=== PATIENT | female | born 1950 | race Caucasian/White ===

== ENCOUNTER 2019-11-12 10:22 | Inpatient (IN) | payer MEDICARE, OTHER ==
[~2019-11-12] VITALS: Ht 157.5 cm; Wt 78.1 kg
--- NOTE | ~2019-11-12 | OP ---
[facility] [address] [place] [address] OPERATIVE REPORT Name: MARÍA ELENA VOGT Joaquin Room: [address] Coleman#: [id number] Admission: 11/12/19 Attend Phys: Joaquin Rne Discharge: Date of : 48 Report #: [id number] THIS REPORT FOR: //name// cc: Cassandra Zarate MD Mcrae, Jennifer A, MD THIS REPORT FOR: //name// CC: Cassandra Marshall PREOPERATIVE DIAGNOSIS: Gangrene, fourth digit of the right foot. POSTOPERATIVE DIAGNOSIS: Gangrene, fourth digit of the right foot. PROCEDURE: Amputation fourth digit of the right foot. DESCRIPTION OF PROCEDURE: The patient was placed on the operating table in the supine position. After administration of IV sedation, local infiltration of 1% plain Xylocaine and 0.5% plain Marcaine, in equal amounts was infiltrated into the fourth metatarsophalangeal joint, 8 mL. The usual prep and drape was rendered at this time. Pneumatic tourniquet was applied supplementary to the right ankle at 250 mmHg for 27 minutes. The following procedure was now performed. A longitudinal incision was made over the distal third of the fourth metatarsal of the right foot to the joint line, two semielliptical incisions were then made from dorsal proximal to plantar distal to encompass the fourth digit and meeting plantarly. The skin incision at this time was deepened. The subcutaneous tissue was incised, bleeders were clamped and coagulated. The fourth metatarsophalangeal joint capsule was identified. The capsular structure was incised transversely. The medial and lateral collateral ligaments were incised and the tendinous structures, extensor digitorum longus and brevis dorsally and flexor digitorum longus and brevis plantarly were now incised and allowed to retract in the incision. The fourth digit was then disarticulated from the right foot. Both aerobic and anaerobic cultures were now performed to the surgical site. It was noted at this time that there was considerable fluid, which was not purulent, but due to the patient's renal failure, she seemed to be edematous okay so that the fluid was just part of the overload that she has at this time. Therefore, it was felt that complete closure of the wound would not be efficacious and that the tissues on the medial and lateral margins of the skin both proximal, intermediate and distal were friable, there were several 4-0 chromic gut subcutaneous tissues applied distally and proximally, but due to the condition of the tissues, it felt that further subcutaneous closure was not appropriate. The skin was then closed with 4-0 nylon simple suture that was entered digital was left open and packed with iodoform gauze. Next, Xeroform was applied to the surgical site as well as a dry sterile dressing. The tourniquet was released and good capillary filling time was noted. The patient [facility] [address] [place] [address] OPERATIVE REPORT Name: MARÍA ELENA MIRANDA Room: [address] Zacarias Cee#: [id number] Admission: 11/12/19 Attend Phys: Joaquin Ren Discharge: Date of : 48 Report #: [id number] tolerated the surgical procedure well and left the operating room in satisfactory condition. By: 1307 [id number] Her DPM /seun
[2019-11-12 10:40] VITALS: BP 144/63
[2019-11-12] MEDS ORDERED: TRAMADOL 50 MG50 MG PO (10:49)
[2019-11-12] MEDS ORDERED: NORVASC5 M1 PO (10:52)
[2019-11-12] MEDS ORDERED: CARVEDILOL6.25 M1 PO (10:53)
[2019-11-12] MEDS ORDERED: FUROSEMIDE 40 M40 M1 PO (10:53)
[2019-11-12] MEDS ORDERED: LIPITOR40 MG PO (10:55)
[2019-11-12] MEDS ORDERED: DOXYCYCLINE 10100 M2 PO (10:56)
[2019-11-12] MEDS ORDERED: SODIUM BICARBONATE PO (10:59)
[2019-11-12 11:00] LABS: ABSOLUTE BASOPHILS 0.1 thou/uL (0.0-0.2); ABSOLUTE EOSINOPHILS 0.2 thou/uL (0.0-0.7); ABSOLUTE MONOCYTES 0.5 thou/uL (0.0-1.2); ABSOLUTE NEUTROPHILS 4.7 thou/uL (1.6-8.1); BASOPHILS 1.3 %; EOSINOPHILS 2.6 %; HEMATOCRIT 25.9 % (37.0-47.0); HEMOGLOBIN 8.8 gm/dL (12.0-15.0); LYMPHOCYTES 15.1 %; MCH 29.7 pg (26.0-34.0); MCHC 33.8 g/dL (28.0-37.0); MCV 87.9 fL (80.0-100.0); MONOCYTES 7.6 %; MPV 8.2 fl. (7.2-11.1); NUCLEATED RBCS 0 /100WBC; PLATELET COUNT* 217 thou/uL (150-400); POLYS 73.4 %; RBC 2.95 mil/uL (4.20-5.00); RDW-CV 14.9 % (10.5-14.5); WBC 6.4 thou/uL (4.0-11.0)
[2019-11-12] MEDS ORDERED: BACLOFEN 10MG T10 MG PO (11:00)
[2019-11-12] MEDS ORDERED: LANTUS SUBQ (11:00)
[2019-11-12] MEDS ORDERED: NEURONTIN100 MG PO (11:01)
[2019-11-12 11:09] LABS: APTT 26.6 Seconds (25.0-31.3); PROTIME 10.7 Seconds (9.20-11.50)
[2019-11-12 12:00] LABS: ESR (SEDRATE) 94 mm/hr (0-30)
[2019-11-12 12:01] LABS: ALBUMIN 2.8 g/dL (3.4-5.0); CALCIUM 8.3 mg/dL (8.5-10.1); CREATININE 4.5 mg/dL (0.6-1.3); POTASSIUM 5.3 mmol/L (3.5-5.1); TOTAL BILIRUBIN 0.2 mg/dL (<0.1-1.0)
--- NOTE | 2019-11-12 12:20 | EKG ---
[place] [address] ELECTROCARDIOGRAM REPORT Name: MARÍA ELENA VOGT Joaquin Room: [address]R.#: [id number] Admission: 11/12/19 Attend Phys: Kendall Marshall Discharge: Date of : 48 Date of Service: 11/12/19 1054 Report #: [id number] THIS REPORT FOR: //name// [facility] Test Date: 2019-11-12 Test Time: 10:54:26 Pat Name: MARÍA ELENA MIRANDA Department: Room: [place] [address] Gender: F Head Cook: FREDERIC : 1950 Requested By: Marcus Her Order Number: [id number] Igor MD: Garret Evans Measurements Intervals [place] Rate: 71 P: 27 DC: 210 QRS: 3 QRSD: 96 T: 46 QT: 393 QTc: 428 Interpretive Statements Sinus rhythm Low voltage, precordial leads No previous ECG available for comparison Electronically Signed On 11-12-2019 12:20:02 CDT by Garret Evans [email or web address] <ELECTRONICALLY SIGNED> By: Garret Evans MD, [facility] 11/12/19 1220 1054 1054 Garret Evans MD, [facility] /EPI
[2019-11-12 15:00] VITALS: BP 114/46
--- NOTE | 2019-11-12 17:00 | NUR ---
SPOKE WITH DAUGHTER,CHASE, AT DESK. SHE SAID TOLD HER PT.WOULD STAY LONGER IN HOSPITAL THAT ONE DAY DUE TO KIDNEY FAILURE, PENDING CX,ETC. SHE IS CURRENT WITH [facility].[phone]. GAVE CHASE A PRIVATE DUTY LIST PER HER REQUEST. SHE SAID SHE NEEDED TO HAVE SOMEONE HELP HER MOM,[facility]. SHE UNDERSTOOD IT IS PRIVATE PAY.
--- NOTE | 2019-11-12 17:30 | NUR ---
PATIENT ARRIVED TO THE FLOOR ROOM 108 APPROX. 1500 TODAY FROM PACU. SHE HAD THE 4TH TOE ON THE RIGHT FOOT AMPUTATED DUE TO GRANGRENE. SHE WAS VERY SLEEPY WHEN SHE CAME TO THE FLOOR AND IS STILL VERY SLEEPY. I CAN WAKE HER EASILY AND THEN SHE FALLS RIGHT BACK TO SLEEP. SHE IS ON OXYGEN AT 3 LITERS PER NC. SHE DOES HAVE SNORING RESPIRATIONS BUT HER LUNGS ARE CLEAR. SHE HAS SWELLING IN BILATERAL LOWER EXT. DAUGHTER STATES THAT IS HER NORMAL. SHE IS DIABETIC AND HER BLOOD SUGAR THIS PM WAS 78. HER TRAY IS IN THE ROOM BUT SHE IS TO TIRED TO EAT AT THIS TIME. CALL LIGHT IN EASY REACH. DENIES PAIN AT THIS TIME. DAUGHTER HAS BEEN HER WITH HER SINCE SHE RETURNED FROM PACU. I PLACED A POST OP SHE IN THE ROOM AND THE SUPPLIES FOR THE DRESSING CHANGE THAT THE REQUESTED. BACK JOINER JAYLON STATED THAT SHE WOULD HAVE THE RENEWABLE ENERGY PROJECT MANAGER GET THE REST OF THE SUPPLIES THAT I NEED. NO DISTRESS NOTED. SHE DOES HAVE A WOUND ON THE OUTER ASPECT OF THE LEFT FOOT. I DID TAKE A PHOTO AND PUT IT ON THE CHART. HER DAUGHTER STATES THAT HER SHOE RUBBED IT.
[2019-11-12 20:00] VITALS: BP 151/55
[2019-11-13] VITALS: BP 147/54
[2019-11-13 02:06] LABS: GLYCOHEMOGLOBIN (HGB A1C) 6.6 % (4.8-5.6)
[2019-11-13 04:00] VITALS: BP 150/72
[2019-11-13 06:03] LABS: ABSOLUTE EOSINOPHILS 0.2 thou/uL (0.0-0.7); ABSOLUTE LYMPHOCYTES 0.6 thou/uL (0.8-5.3); ABSOLUTE MONOCYTES 0.3 thou/uL (0.0-1.2); ABSOLUTE NEUTROPHILS 3.5 thou/uL (1.6-8.1); BASOPHILS 1.1 %; EOSINOPHILS 3.9 %; HEMATOCRIT 25.4 % (37.0-47.0); HEMOGLOBIN 8.6 gm/dL (12.0-15.0); MCH 29.8 pg (26.0-34.0); MCHC 33.8 g/dL (28.0-37.0); MCV 88.4 fL (80.0-100.0); MONOCYTES 5.8 %; MPV 8.1 fl. (7.2-11.1); NUCLEATED RBCS 0 /100WBC; PLATELET COUNT* 206 thou/uL (150-400); POLYS 75.2 %; RBC 2.87 mil/uL (4.20-5.00); RDW-CV 14.7 % (10.5-14.5); WBC 4.6 thou/uL (4.0-11.0)
[2019-11-13 06:12] LABS: CALCIUM 8.3 mg/dL (8.5-10.1); CREATININE 4.6 mg/dL (0.6-1.3); POTASSIUM 5.6 mmol/L (3.5-5.1)
--- NOTE | 2019-11-13 06:40 | NUR ---
PT A&O X 4, DROWSY LAST NIGHT. PT DENIED PAIN ALL NIGHT. UP TO BSC TO VOID 3 TIMES BUT SMALL AMOUNT. AT O450 1053ML ON BLADDER SCAN, FISHER CATH INSERTED. PT DENIED PAIN ALL NIGHT. BUT IN THE MORNING, PT RATED PAIN 8/10 HYDROCODONE GIVEN, TRAMADOL GIVEN ALSO. PAIN PARTIALLY RESOLVED BUT SHE IS STILL IN PAIN. WILL CONTINUE TO MONITOR.
[2019-11-13 07:40] VITALS: BP 128/40
--- NOTE | 2019-11-13 16:30 | NUR ---
PATINET RESTING IN BED. AOX2 BUT CONFUSED. SHE CAN CARRY ON A CONVERSATIONO BUT WANDERS REGULARLY. VSS AND PATIENT IN NO APPARNET SIGNS OF DISTRESS A T THIS TIME. SURGERY CHANGED THE DRESSING ON HER RIGHT FOOT WITH INSTRUCTIONS TO NOT CHANGE DRESSING UNTIL HE REVISITS ON SATURDAY. HOURLY ROUNDING COMPLETD FOR PATIENT SAFETY.
[2019-11-13 17:14] VITALS: BP 126/78
[2019-11-13 20:00] VITALS: BP 167/74
[2019-11-14 00:07] VITALS: BP 134/50
[2019-11-14 05:06] LABS: ALBUMIN 2.3 g/dL (3.4-5.0); CALCIUM 8.4 mg/dL (8.5-10.1); CREATININE 4.5 mg/dL (0.6-1.3); POTASSIUM 5.3 mmol/L (3.5-5.1); TOTAL BILIRUBIN 0.2 mg/dL (<0.1-1.0); TOTAL PROTEIN 6.1 g/dL (6.4-8.2)
[2019-11-14 05:18] VITALS: BP 138/54
--- NOTE | 2019-11-14 08:19 | CON ---
[address] [address] CONSULTATION Name: MARÍA ELENA MIRANDA Room: [address] IN M.R.#: [id number] Admission: 11/13/19 Attend Phys: Joaquin Ren Discharge: Date of : 48 Report #: [id number] THIS REPORT FOR: //name// cc: Cassandra Zarate MD Mcrae, Jennifer A, MD ~ THIS REPORT FOR: //name// CC: Cassandra Marshall DATE OF SERVICE: 11/13/2019 REQUESTING PHYSICIAN: Dr. Ríos. REASON FOR CONSULTATION: Chronic kidney disease stage 5. Consultation done by me today, on 11/13/2019. HISTORY OF PRESENT ILLNESS: The patient is a 69-year-old female who has chronic kidney disease stage 5, follows with ski binding fitter and repairer at . I have personally reviewed the notes from ski binding fitter and repairer and her lab values, most recent lab value prior to admission were on 09/08/2019, her creatinine was 3.85 with GFR of 12. So, she was admitted for diabetic foot ulcer and underwent right foot fourth toe amputation. Her creatinine was elevated at 4.3, potassium was 5.6 and I was consulted. PAST MEDICAL HISTORY: 1. Chronic kidney disease stage 5 due to diabetic nephropathy. 2. Diabetes mellitus type 2. 3. Obesity. 4. Hypertension. 5. Peripheral artery disease. FAMILY HISTORY: Positive for diabetes. SOCIAL HISTORY: No tobacco, no alcohol abuse. MEDICATIONS: Reviewed. From my standpoint, she is on Furosemide 40 mg a day and Coreg 6.25 mg twice a day. She is also on insulin. REVIEW OF SYSTEMS: No fever, no chills, no nausea, no vomiting, no diarrhea, no constipation. She does have pollakiuria and nocturia. Rest of systems reviewed and negative. PHYSICAL EXAMINATION: [place] [address] CONSULTATION Name: MARÍA ELENA MIRANDA Room: [address]#: [id number] Admission: 11/13/19 Attend Phys: Joaquin Ren Discharge: Date of : 48 Report #: [id number] GENERAL: Awake, alert, oriented. VITAL SIGNS: Blood pressure 128/50, heart rate 70, and afebrile. HEENT: Pupils are round. NECK: Fatty. LUNGS: Clear. CARDIOVASCULAR: Regular rate. ABDOMEN: Soft, obese. EXTREMITIES: Lower extremities, has right foot ulcer. LABORATORY DATA: Report revealed serum sodium of 142, potassium 5.6, chloride 111, carbon dioxide 23, BUN 54, creatinine 4.6, GFR of 9, calcium 8.3, albumin was 2.8, and hemoglobin is 8.6. ASSESSMENT: 1. Chronic kidney disease stage 5. 2. Hyperkalemia due to chronic kidney disease stage 5. 3. Diabetes mellitus type 2. 4. Diabetic foot. 5. Anemia. 6. Hypertension. PLAN: Low salt, low potassium diet, 1 gram phosphorus diet. Follow labs. Give her ____ and the patient may require dialysis during this admission. Discussed this with the patient and the patient's daughter, explained about dialysis. <ELECTRONICALLY SIGNED> By: Song Hua MD 11/14/19 0819 1041 [id number] Hua MD /nt
[2019-11-14 08:30] VITALS: BP 192/56
[2019-11-14 12:00] VITALS: BP 153/42
[2019-11-14 16:03] LABS: URINE BILIRUBIN NEGATIVE (Negative); URINE BLOOD 2+ (Negative); URINE CLARITY CLEAR; URINE COLOR YELLOW; URINE GLUCOSE-RANDOM NEGATIVE (Negative); URINE KETONES NEGATIVE (Negative); URINE LEUKOCYTES NEGATIVE (Negative); URINE NITRITE NEGATIVE (Negative); URINE PROTEIN 2+ (Negative); URINE UROBILINOGEN 0.2 E.U./dl (0.2-1.0)
[2019-11-14 16:11] LABS: BACTERIA 1-9 Few /HPF (None Seen); CASTS None Seen /LPF (None Seen); CRYSTALS None Seen /LPF (None Seen); SQUAMOUS 0-3 Few /LPF (0-3); URINE RBC 0-2 Rare /HPF (0-2); URINE WBC 0-5 Rare /HPF (0-5)
--- NOTE | 2019-11-14 19:05 | NUR ---
I ASSUMED CARE OF THE PATIENT AT 0700. SHE IS ALERT AND ORIENTED X2. BED IS IN THE LOW LOCKED POSITION AND CALL LIGHT IS IN REACH. BED ALARM IS ON. MEDICAL RECORDS HAVE BEEN REQUESTED FROM . HOURLY ROUNDING IS COMPLETED AND PATIENT NEEDS ARE MET. NEURO CAME TO SEE THE PATIENT AND PUT IN NEW ORDERS. SHE IS VERY CONFUSED. FISHER IS WORKING GREAT AND SHE KEEPS TRYING TO PULL IT OUT. BLOOD SUGAR IS MONITORED. PAIN IS MANAGED WITH PRN MEDS. MRI RESULTS ARE PENDING. I WAS TOLD THAT WE ARE NOT TO CHANGE THE DRESSING. LABS ARE OUT OF RANGE AND BEING ADDRESSED. WILL CONTINUE TO MONITOR.
[2019-11-14 20:00] VITALS: BP 197/76
[2019-11-14 23:41] LABS: HEMATOCRIT 26.9 % (37.0-47.0); HEMOGLOBIN 9.1 gm/dL (12.0-15.0); MCH 29.5 pg (26.0-34.0); MCHC 33.7 g/dL (28.0-37.0); MCV 87.6 fL (80.0-100.0); MPV 8.8 fl. (7.2-11.1); RBC 3.07 mil/uL (4.20-5.00); RDW-CV 14.7 % (10.5-14.5); WBC 6.6 thou/uL (4.0-11.0)
[2019-11-14 23:51] LABS: ALBUMIN 2.4 g/dL (3.4-5.0); CALCIUM 8.5 mg/dL (8.5-10.1); CREATININE 4.2 mg/dL (0.6-1.3); POTASSIUM 5.3 mmol/L (3.5-5.1); TOTAL BILIRUBIN 0.3 mg/dL (<0.1-1.0); TOTAL PROTEIN 6.4 g/dL (6.4-8.2)
[2019-11-15] VITALS: BP 184/60
[2019-11-15 04:00] VITALS: BP 203/82
--- NOTE | 2019-11-15 07:52 | NUR ---
PT ORIENTED TO SELF ONLY. SHORT TERM MEMORY LOSS WITH ORIENTATION. PT KEPT PULLING OFF O2 AND PULLING OUT IV'S. FREQUENTLY WRAPPED HANDS IN MITTENS. PT HAD TEMP. RESOLVED WITH TYLENOL. HYDRALAZINE GIVEN FOR HTN >200'S THIS AM. BP CAME DOWN TO 173/62. HYDROCODONE EFFECTIVE FOR PAIN. FREQUENTLY ROUNDING FOR SAFETY. CALL LIGHT IN REACH. SOFT TOUCH LIGHT GIVEN WHEN MITTTENS PLACED.
[2019-11-15 08:05] VITALS: BP 135/72
[2019-11-15 09:20] LABS: ALBUMIN 2.5 g/dL (3.4-5.0); CALCIUM 8.6 mg/dL (8.5-10.1); CREATININE 3.9 mg/dL (0.6-1.3); POTASSIUM 5.6 mmol/L (3.5-5.1); TOTAL BILIRUBIN 0.4 mg/dL (<0.1-1.0); TOTAL PROTEIN 6.9 g/dL (6.4-8.2)
[2019-11-15 12:17] VITALS: BP 172/61
[2019-11-15 16:11] VITALS: BP 178/44
--- NOTE | 2019-11-15 18:25 | NUR ---
PATIENT RESTING IN BED. PATIENT REPOSITIONED WHILE IN BED. PATIENT IS CONFUSED. PATIENT PULLS AT LINES. IV RESTARTED X 1 AFTER PATIENT PULLED OUT. MITTENS IN ROOM NEEDED. PATIENT HAS FISHER CATHETER WITH GOOD OUTPUT AND PATIENT HAS NOT PULLED ON. PATIENT HAD BOWEL MOVEMENTS X 2 TODAY, ONE INCONTINENT. BED ALARM ON, PATIENT HAS NOT TRIED TO GET OUT OF BED. PATIENT DENIES ANY NEEDS AT THIS TIME. WILL CONTINUE TO MONITOR.
[2019-11-15 19:40] VITALS: BP 143/57
[2019-11-16] VITALS: BP 172/70
[2019-11-16 04:00] VITALS: BP 183/71
[2019-11-16 04:55] LABS: CALCIUM 8.3 mg/dL (8.5-10.1); CREATININE 4.2 mg/dL (0.6-1.3); POTASSIUM 4.7 mmol/L (3.5-5.1)
--- NOTE | 2019-11-16 04:56 | NUR ---
PT SLEPT ON AND OFF THIS SHIFT. ASSESSMENT DOCUMENTED. MEDS GIVEN PER E-MAR. IV PATENT. PT CONFUSED MOST OF SHIFT, TALKING TO THE TELEVISION. FALL PRECAUTIONS IN PLACE. DRESSING TO RIGHT FOOT IN PLACE. WILL CONTINUE WITH PLAN OF CARE.
[2019-11-16 08:09] VITALS: BP 179/78
--- NOTE | 2019-11-16 08:52 | NUR ---
ASSUMED CARE OF PT THIS AM AROUND 07- HAZMAT TRUCK DRIVER IN PLACE ORDERED, TRACING SR- UPON ASSESSMENT PT NOTED TO BE RESTING IN BED, WATCHING TV- PT A&O X1 WITH NOTED CONFUSSION- INCONT OF BM, FISHER IN PLACE D/D CLEAR YELLOW URINE- ASSIST X1-2 WITH TRANSFERS, Q 2 HO UR TURNS IN PLACE INDICATED WHILE IN BED- LCTA, RESP EVEN AND UN-LABORED- VSS, O2 SAT 985 ON RA- ABD SOFT/OBESE/NON-TENDER, BS X4 QUADS- LAST BM REPORTED 11/15/19- IV NOTED TO LEFT FA INTACT AND SL- SET UP ASSIST REQUIRED WITH MEALS, FAIR PO INTAKE NOTED- DRESSING COVERED WITH SOCK NOTED TO RL FOOT R/T 4TH TOE AMP, RLE ELEVATED OM PILLOW INDICATED; DRESSING TO BE REPLACED PER PHYSICAIN THIS SHIFT- BS MONITORED ORDERED-PT DENIES ANY C/O PAIN/DISCOMFORT AT THIS TIME- CALL LIGHT AND PERSONAL BELONGINGS WITH IN REACH- HOURLY ROUNDS IN PLACE R/T SAFETY/NEEDS- ALL NEEDS MET AT THIS TIME-WCTM
--- NOTE | 2019-11-16 11:13 | NUR ---
SW met with pt to complete initial assessment. Pt lives at home alone. Pt has hx with [facility]. Pt has cane and gait walker, king. Pt was confused about why she doesn't get out of bed to urinate, SW spoke with pt nurse who informed pt has been told about king but pt does not remember. Possible need for SNF or inpt rehab at dc; SW to continue to follow to assist with safe dc planning.
[2019-11-16 12:00] VITALS: BP 120/63
[2019-11-16 16:00] VITALS: BP 122/68
[2019-11-16 20:28] VITALS: BP 162/50
[2019-11-17] VITALS: BP 109/55
[2019-11-17 04:00] VITALS: BP 162/53
[2019-11-17 05:20] LABS: CALCIUM 8.2 mg/dL (8.5-10.1); CREATININE 4.2 mg/dL (0.6-1.3); POTASSIUM 4.1 mmol/L (3.5-5.1)
--- NOTE | 2019-11-17 05:32 | NUR ---
PT IS ABLE TO COMMUNICATE HER NEEDS TO STAFF WITH MINOR DIFFICULTY; SHE IS CONFUSED AT TIMES AND HAS SOME SLURRED SPEECH FROM AN OLD CVA. SHE HAS DENIED THE NEED FOR PAIN MEDICATION UP TO THIS TIME. FISHER IS PATENT AT THIS TIME. DRESSING TO RIGHT FOOT WHERE 4TH TOE WAS AMPUTATED; PARTIAL WT BEARING TO RIGHT FOOT.
[2019-11-17 07:53] VITALS: BP 173/96
--- NOTE | 2019-11-17 09:37 | NUR ---
ASSUMED CARE OF PT THIS AM AROUND 0715- LIFE SCIENCES INSTRUCTOR IN PLACE ORDERED, TRACING SR- UPON ASSESSMENT PT NOTED TO BE RESTING IN BED- PT A&O 1-2 WITH NOTED CONFUSSION- INCONT OF BOWEL, FISHER IN PLACE D/D CLEAR YELLOW URINE- BED REST IN PLACE WITH Q 2 HOUR TURNS- LCTA, RESP EVEN AND UN-LABORED- VSS, O2 SAT 97% ON RA- ABD SOFT/OBESE/NON-TENDER, BS X4 QUADS- LAST BM REPORTED 11/16/19- IV NOTED TO LEFT FA INACT AND SL- SET UP ASSIST WITH MEALS NOTED, GOOD PO INTAKE- BS MONITORED ORDERED- RIGHT FOOT NOTED WITH DRESSING IN PLACE AND COVERED WITH SOCK; RLE ELEVATED ON PILLOW- PT DENIES ANY C/O PAIN/DISCOMFORT AT THIS TIME- CALL LIGHT AND PERSONAL BELONGINGS WITH IN REACH- HOURLY ROUNDS IN PLACE R/T SAFETY/NEEDS- ALL NEEDS MET AT THIS TIME-WCTM
[2019-11-17 11:30] VITALS: BP 127/62
--- NOTE | 2019-11-17 14:07 | PATH ---
[facility] [address] [place] [address] PATHOLOGY RPT PROCEDURE Name: MARITZA CORBETT Room: [address] IN .R.#: [id number] Admission: 11/13/19 Date of : 48 Discharge: Report #: [id number] Path Case #: [id number] [facility] Accession Number: [id number] . 01 Material submitted: . toe - RIGHT 4TH TOE. Modifiers: right, fourth . 01 Clinical history: . Gangrene . 02 Diagnosis: Right fourth toe: - Benign toe with extensive acute inflammation and necrosis of soft tissues and osteomyelitis of proximal phalanx. - Proximal disarticulation margin free of osteomyelitis. . (DEBORA:mm; 11/17/2019) QL 11/17/2019 0943 Local . 02 Electronically signed: . Kaveh Florence MD, Pathologist NPI- [id number] . 01 Gross description: . The specimen is received in formalin, labeled "Maritza Corbett, right fourth toe" and consists of a gangrenous disarticulated toe measuring 4.4 x 2.5 x 1.3 cm. The nail is present which is yellow-babcock and smooth. The skin shows extensive gangrenous ulceration over 70% of the surface which grossly approaches the skin soft tissue margin (inked black). The proximal bone margin is a smooth babcock concave articular surface. Section reveals babcock to brown bone cut surfaces and senior outside sales representative sections are submitted as follows: . A1: Skin soft tissue margin A2: Toe, longitudinal section distal A3: Toe, longitudinal section proximal A2 and A3 will be submitted following decalcification. (SD; 11/16/2019) SYU/ERNIE 11/16/2019 1055 Local . 02 Pathologist provided ICD-10: M86.8X7 . 02 CPT . 705413, [id number] Specimen Comment: A courtesy copy of this report has been sent to [phone] Specimen Comment: [id number], [place] [address] PATHOLOGY RPT PROCEDURE Name: MARITZA CORBETT Room: [address] IN ..#: [id number] Admission: 11/13/19 Date of : 48 Discharge: Report #: [id number] Path Case #: [id number] Specimen Comment: Report sent to ,DR SHERWOOD / DR WHELAN Performed at: [address] [facility] [address], [place], [place] [id number] MD Stephon Donovan MD Phone: [phone] Performed at: [address] [place] [address] [address], [place], [place] [id number] MD Kaveh Florence MD Phone: [phone]
[2019-11-17 15:07] LABS: ANA INTERPRETATION Negative (())
[2019-11-17 20:34] VITALS: BP 169/59
[2019-11-18 04:55] VITALS: BP 138/78
--- NOTE | 2019-11-18 05:08 | NUR ---
PT IS ABLE TO COMMUNICATE HER NEEDS TO STAFF EFFECTIVELY. CURRENT PAIN MEDICATION REGIMEN HAS BEEN ADEQUATE FOR CONTROLLING HER PAIN UP TO THIS TIME. FISHER HAS BEEN PATENT UP TO THIS TIME. POSSIBLE DISCHARGE LATER TODAY.
[2019-11-18 06:02] LABS: CALCIUM 8.1 mg/dL (8.5-10.1); CHOLESTEROL 113 mg/dL (<200); CREATININE 4.2 mg/dL (0.6-1.3); HDL CHOLESTEROL 28 mg/dL (>40); LDL CHOLESTEROL 55 mg/dL (<100); POTASSIUM 4.4 mmol/L (3.5-5.1); TRIGLYCERIDE 153 mg/dL (<150); VLDL 31 mg/dL (<40)
[2019-11-18 06:03] LABS: SERUM ASSESSMENT Clear
[2019-11-18 08:00] VITALS: BP 161/51
[2019-11-18 15:35] LABS: URINE BILIRUBIN NEGATIVE (Negative); URINE BLOOD 2+ (Negative); URINE CLARITY CLEAR; URINE COLOR YELLOW; URINE GLUCOSE-RANDOM NEGATIVE (Negative); URINE KETONES NEGATIVE (Negative); URINE LEUKOCYTES-REFLEX 1+ (Negative); URINE NITRITE-REFLEX NEGATIVE (Negative); URINE PROTEIN 3+ (Negative); URINE UROBILINOGEN 0.2 E.U./dl (0.2-1.0)
[2019-11-18 15:46] LABS: MUCUS None Seen strn/LPF (None Seen); SQUAMOUS >10 Many /LPF (0-3)
[2019-11-18 15:47] LABS: URINE WBC-REFLEX 6-15 Few /HPF (0-5)
[2019-11-18 15:48] LABS: CRYSTALS None Seen /LPF (None Seen); URINE RBC 0-2 Rare /HPF (0-2); YEAST-REFLEX Present (None Seen)
[2019-11-18 15:49] LABS: HYALINE CASTS 0-3 Few /LPF (None Seen)
[2019-11-18 15:50] LABS: BACTERIA-REFLEX 1-9 Few /HPF (None Seen)
[2019-11-18 16:00] VITALS: BP 145/56
--- NOTE | 2019-11-18 16:40 | NUR ---
ASSUMED CARE OF PATIENT THIS AM AT 0730. PATIENT IS ALERT, MILDLY CONFUSED AT TIMES TODAY. PATIENT HAS C/O UNRELIEVED PAIN WITH THIS AMS ASSESSMENT. PATIENT FAILED TO DISCLOSE TO THE DR HER NEED FOR A STRONGER PAIN MEDICATION TO THE DOCTORS WHEN THEY ROUNDED. NEW ORDERS WRITTEN BY DR PIMENTEL. SPECIMENS SENT TO THE LAB PER ORDER. DRESSING INTACT TO RIGHT FOOT. PODIATRY IN TO SEE PATIENT AND DRESSING CHANGED. DR PEÑA CONSULTED PER ORDER. PT AND OT IN TO WORK WITH PATIENT TODAY. PATIENT MEDICATED FOR PAIN X 2 TODAY WITH SOME RELIEF NOTED. PATIENT PLACED IN ISOLATION PENDING COVID RESULTS.
[2019-11-18 17:37] LABS: ABSOLUTE BASOPHILS 0.1 thou/uL (0.0-0.2); ABSOLUTE EOSINOPHILS 0.3 thou/uL (0.0-0.7); ABSOLUTE LYMPHOCYTES 1.3 thou/uL (0.8-5.3); ABSOLUTE MONOCYTES 0.5 thou/uL (0.0-1.2); ABSOLUTE NEUTROPHILS 5.2 thou/uL (1.6-8.1); BASOPHILS 0.9 %; EOSINOPHILS 3.5 %; HEMATOCRIT 27.9 % (37.0-47.0); HEMOGLOBIN 9.3 gm/dL (12.0-15.0); LYMPHOCYTES 17.7 %; MCH 29.6 pg (26.0-34.0); MCHC 33.5 g/dL (28.0-37.0); MCV 88.4 fL (80.0-100.0); MONOCYTES 7.3 %; MPV 9.8 fl. (7.2-11.1); NUCLEATED RBCS 0 /100WBC; PLATELET COUNT* 225 thou/uL (150-400); POLYS 70.6 %; RBC 3.15 mil/uL (4.20-5.00); RDW-CV 15.3 % (10.5-14.5); WBC 7.4 thou/uL (4.0-11.0)
[2019-11-18 17:46] LABS: ALBUMIN 2.2 g/dL (3.4-5.0); ALKALINE PHOSPHATASE 82 U/L (46-116); DIRECT BILIRUBIN < 0.1 mg/dL (<0.1-0.3); SGOT 54 U/L (15-37); SGPT 35 U/L (30-65); TOTAL BILIRUBIN 0.2 mg/dL (<0.1-1.0); TOTAL PROTEIN 6.2 g/dL (6.4-8.2)
[2019-11-18 20:00] VITALS: BP 176/61
[2019-11-19] VITALS: BP 167/65
[2019-11-19 04:00] VITALS: BP 159/57
[2019-11-19 05:23] LABS: ALBUMIN 2.2 g/dL (3.4-5.0); CALCIUM 8.2 mg/dL (8.5-10.1); CREATININE 4.3 mg/dL (0.6-1.3); MAGNESIUM 1.2 mg/dL (1.8-2.4); PHOSPHORUS* 4.2 mg/dL (2.5-4.9); POTASSIUM 4.1 mmol/L (3.5-5.1)
[2019-11-19 08:00] VITALS: BP 180/73
--- NOTE | 2019-11-19 10:22 | NUR ---
ASSUMED PT CARE AT 0730, PT RESTING IN BED, AOX4 BUT FORGETFUL, IN ISO FOR COVID PENDING, RAPID COVID NEGATIVE, THOUGH, AND HAS C/O PAIN TO BILAT LEGS BUT HAD PAIN MEDS TOO RECENTLY TO GIVE MORE, ENCOURAGED DEEP BREATHING, WATCHING TV AND PROVIDED WARM BLANKET TO WRAP AROUND FEET. PT NOTED TO HAVE DRESSED WOUND ON RT FOOT AND SCABBED WOUND ON L FOOT BY PINKIE TOE. PT HAD SOME REDNESS ON BUTTOCKS, ENCOURAGED PT TO TURN Q2H AND PUT PILLOW UNDER RT SIDE OF PT THIS MORNING. PT GOAL IS TO REMAIN FREE FROM FURTHER SKIN BREAKDOWN AND INCREASE ACTIVITY. PT STATES SHE HAS HAD A FEW FALLS RECENTLY AND WAS TOO WEAK TO GET BACK UP BUT HASN'T BEEN ABLE TO GET TO THE COMODE DURING THIS HOSPITAL STAY. AM ASSESSMENT CHARTED, MEDS PER MAR, HOURLY ROUNDING OBSERVED, FALL PRECAUTIONS IN PLACE, CALL LIGHT W/IN REACH, WILL CONTINUE POC.
--- NOTE | 2019-11-19 11:34 | CON ---
[address] [address] CONSULTATION Name: MARÍA ELENA MIRANDA Room: [address] IN .R.#: [id number] Admission: 11/13/19 Attend Phys: Mateo Ríos MD Discharge: Date of : 48 Report #: [id number] THIS REPORT FOR: //name// cc: Cassandra Zarate MD Mcrae, Jennifer A, MD ~ THIS REPORT FOR: //name// CC: Mateo Zarate Marcus Her DATE OF SERVICE: 11/18/2019 INFECTIOUS DISEASE CONSULTATION ATTENDING PHYSICIAN: Mateo Ríos MD REASON FOR EVALUATION: Osteomyelitis involving right fourth toe post-amputation, was confirmed to have osteomyelitis, who is now in the hospital, has developed some fevers. HISTORY OF PRESENT ILLNESS: Chart reviewed, the patient examined. This is a 69-year-old woman with known diabetes mellitus, has been complicated by fairly significant peripheral neuropathy, who noted roughly 2 weeks prior to her admission, had developed changes in her fourth great toe. It is not clear if she had an injury. Subsequently, she developed what described as gangrene, did seek medical attention, was admitted and underwent amputation. Cultures had polymicrobial growth including coag-negative Staphylococcus and Streptococcus anginosus and Finegoldia magna. She has been on combination therapy with piperacillin-tazobactam as well as doxycycline. Complicating factors including renal failure. She has had a significant amount of postoperative pain, which primarily takes up her spectrum of complaints. Does admit to some mild dyspnea. She has not had significant gastrointestinal-related complaints, although has had multiple soft stools. Evaluation for possible infectious cause is in progress including chest x-ray, urine and blood cultures. ALLERGIES: None known. MEDICATIONS: Include cholecalciferol, quetiapine, thiamine, patiromer, carvedilol, atorvastatin, amlodipine, pantoprazole, Zosyn, gabapentin, doxycycline. PAST MEDICAL HISTORY: Includes diabetes mellitus type 2 complicated by peripheral neuropathy, has known vasculopathy with previous stroke, chronic renal insufficiency, now exacerbated with a creatinine in the 4.2 range, hyperlipidemia, [place] [address] CONSULTATION Name: TORIEMARÍA ELENA Room: [address]#: [id number] Admission: 11/13/19 Attend Phys: Mateo Ríos MD Discharge: Date of : 48 Report #: [id number] SOCIAL HISTORY: Nonsmoker, no ethanol, no illicit drug use. FAMILY HISTORY: Noncontributory. REVIEW OF SYSTEMS: Otherwise, unremarkable 10-point review of systems. PHYSICAL EXAMINATION: GENERAL: She has moderate to marked distress secondary to the pain. She is generally lucid, appears somewhat chronically ill, undernourished. She is anemic, pale. VITAL SIGNS: Temperature 99.6, pulse 82, respirations 18, blood pressure is 161/51. SKIN: Warm, dry, no rashes. HEENT: Normocephalic. Extraocular muscles intact. NECK: Supple. LUNGS: Somewhat diminished overall, few scattered crackles. HEART: Regular. I do not appreciate murmur. ABDOMEN: Soft, nontender, nondistended. EXTREMITIES: Examined the distal right fourth toe, there is not a significant amount of inflammation noted at the site of the amputation, significant amount of drainage. ASSESSMENT AND PLAN: Right fourth toe gangrene complicated by osteomyelitis, is confirmed by pathology report in the setting of diabetes mellitus, also nosocomial fevers, having been here for several days. They are ruling out Coronavirus. Additional studies are pending. I think, at this point, we would extend the antibiotics. I think Zosyn is a reasonable choice given the polymicrobial nature of it as well as the renal failure can adjust it in addition to doxycycline. At this point, I do not think she will need an extended period of time, probably be able to transition to oral antibiotics with Augmentin prior to her discharge. Noted that the proximal distal articulate margin was free of osteomyelitis. We will certainly address any further diagnostic testing that may give us a clue as to why she is having fevers. Consider C. diff testing as well. We will repeat CBC and procalcitonin. <ELECTRONICALLY SIGNED> By: Álvaro Almanzar MD 11/19/19 1134 1721 08Álvaro Almanzar MD /nt
--- NOTE | 2019-11-19 18:20 | NUR ---
NO ACUTE CHANGES THROUGHOUT SHIFT, PT C/O PAIN TO BILAT FEET, BUT MOSTLY RT FOOT W/ VERY TEMPORARY RELIEF W/ HYDROCODONE BUT WAS STATING PAIN WAS BACK AND UNBEARABLE BEFORE MORE MEDS DUE, DR CONSULTED, AWAITING ORDERS. PT REPOSITIONED Q2H AND REMAINED FREE FROM SKIN BREAKDOWN THIS SHIFT. MEDS PER JUL, HOURLY ROUNDING OBSERVED, FALL PRECAUTIONS IN PLACE, CALL LIGHT W/IN REACH, WILL CONTINUE POC.
[2019-11-19 20:00] VITALS: BP 140/57
[2019-11-19 23:46] VITALS: BP 150/59
--- NOTE | 2019-11-20 06:24 | NUR ---
ASSUMED PT CARE AT 1915. NURSING ASSESSMENT COMPLETED AT START OF SHIFT. PT M/S STATUS. PT C/O PAIN TO BILAT FEET, UNCHANGED 1 HR POST PRN PAIN MED ADMINISTRATION. DR. ROAD AND NOTIFIED AND NEW ORDERS RECEIVED AND EFFECTIVE. HOURLY ROUNDING COMPLETED. Q2H REPOSITIONING COMPLETED. CALL LIGHT REMAINS WITHIN REACH.
[2019-11-20 08:00] VITALS: BP 159/74
[2019-11-20] MEDS ORDERED: ANTACID650 MG PO (09:38)
[2019-11-20] MEDS ORDERED: VITAMIN B-1100 M1 PO (09:38)
[2019-11-20] MEDS ORDERED: VITAMIN D325 MC3 PO (09:38)
[2019-11-20] MEDS ORDERED: VELTASSA8.4 GM PO (09:38)
[2019-11-20] MEDS ORDERED: NORCO 10-325 T1 EACH PO (09:38)
[2019-11-20 11:30] VITALS: BP 149/50
[2019-11-20] MEDS ORDERED: PENTOXIFYLLINE400 MG PO (11:34)
--- NOTE | 2019-11-20 12:51 | NUR ---
ASSUMED PT CARE AT 0730, PT RESTING IN BED, AOX4 BUT FORGETFUL AND C/O PAIN TO RT FOOT BUT STATES OXYCODONE WORKS BUT THAT WAS DC'D THIS MORNING. GAVE PRN HYDROCODONE W/ NO RELIEF AND CONSULTED DR ABOUT PAIN. DR ORDERED MED THAT WE DON'T HAVE AT OUR PHARMACY BUT SENT IT TO ANOTHER PHARMACY SO DAUGHTER CAN OUTREACH REP MED AND BRING TO OUR PHARMACY TO VERIFY AND GIVE TO PT. PT MAGNESIUM LOW THIS MORNING, CURRENTLY HAS MAGNESIUM RUNNING TO REPLACE PER E'LYTE PROTOCOL. PT DAUGHTER IN ROOM. PT GOAL IS TO WORK W/ CM ON PLACEMENT, HAVE A TICC LINE PLACED SO SHE CAN TRANSFER OUT W/ IV ABX, AND WORK ON PAIN MANAGEMENT. DR GANN CALLED ABOUT PT'S WOUND AND DRESSING. PT STATES DRESSING WAS CHANGED 2-3 DAYS AGO, DR GANN'S OFFICE TOLD US NOT TO TOUCH DRESSING AND THAT THEY WILL CALL PT'S DAUGHTER TO SET UP AN APPT TO CHANGE DRESSING ON 11/23/19. AM ASSESSMENT CHARTED, MEDS PER JUL, HOURLY ROUNDING OBSERVED, FALL PRECAUTIONS IN PLACE, CALL LIGHT W/IN REACH, WILL CONTINUE POC.
--- NOTE | 2019-11-20 15:44 | NUR ---
KATY met with pt and pt dtr about dc planning for SNF for today. SW provided list of referral for SNF and sent referrals to choices of [facility], [facility], [facility]. [facility] declined, [facility] unable to accept pts at this time, [facility] reviewing and unlikely able to accept over the weekend due to bed availability. KATY updated pt/family and will continue to send more SNF referrals and assist with finalizing safe dc plan.
[2019-11-20 17:45] VITALS: BP 115/40
--- NOTE | 2019-11-20 18:06 | NUR ---
NO ACUTE CHANGES THROUGHOUT SHIFT, PT WENT DOWN TO IR TO HAVE TICC PLACED THIS AFTERNOON, TOLERATED WELL. TICC PLACED IN RT SUBCLAVIAN. CM STILL WORKING ON PLACEMENT FOR PT. PENTOXIFYLLIN ORDERED FOR PT FOR RT FOOT PAIN, MED HAD TO BE PICKED UP FROM ANOTHER PHARMACY BY PT DAUGHTER AND BROUGHT TO OUR PHARMACY SINCE WE DO NOT CARRY MED HERE. MED GIVEN TO PT W/ PARTIAL RELIEF. MEDS PER JUL, HOURLY ROUNDING OBSERVED, FALL PRECAUTIONS IN PLACE, PT GOT UP TO THE CHAIR TODAY AND TO USE THE COMODE W/ 1-2, CALL LIGHT W/IN REACH, WILL CONTINUE POC.
[2019-11-20 18:35] VITALS: BP 98/40
[2019-11-20 20:00] VITALS: BP 142/40
[2019-11-21] VITALS: BP 95/43
--- NOTE | 2019-11-21 00:53 | NUR ---
PT ALERT ORIENTED. TURN Q 2 HRS SHE IS UNABLE TO TURN HERSELF. HYDROCODONE GIVEN HS FOR PAIN IN RIGHT FOOT. ON RA. RSC-DL WITH PINK DRAINAGE OF GAUZE. CAPS CHGD TO GO WITH NEEDLELESS SYSTEM.
--- NOTE | 2019-11-21 02:09 | NUR ---
PT MORE CONFUSED SHIFT PRPGRESSES. PT SEES BLACK SPOT ON CELLING AND WAS SURE IT WAS A SPIDER. PT STATED IT'S MOVING. PT REASSURED THERE WAS ONLY A BLACK SPOT AND NO SPIDER.
[2019-11-21 04:00] VITALS: BP 128/51
[2019-11-21 06:12] LABS: ALBUMIN 2.1 g/dL (3.4-5.0); CREATININE 4.8 mg/dL (0.6-1.3); PHOSPHORUS* 4.7 mg/dL (2.5-4.9); POTASSIUM 4.5 mmol/L (3.5-5.1)
[2019-11-21 07:46] VITALS: BP 149/48
--- NOTE | 2019-11-21 10:05 | NUR ---
ASSUMED PT CARE AT 0730, PT RESTING IN BED, AOX4 BUT FORGETFUL, AND C/O PAIN TO RT FOOT BUT JUST RECEIVED PAIN MEDS RIGHT BEFORE SHIFT CHANGE SO I PROVIDED REASSURANCE, POSITION CHANGE, FOOT ELEVATION AND COMFORT FOOD. PT SPOKE W/ DR TODAY AND GOAL IS TO INCREASE ACTIVITY AND WORK ON POSSIBLE DC TO SNF TODAY. AM ASSESSMENT CHARTED, MEDS PER MAR, HOURLY ROUNDING OBSERVE, FALL PRECAUTIONS IN PLACE, CALL LIGHT W/IN REACH, WILL CONTINUE POC.
[2019-11-21 16:32] VITALS: BP 149/60
--- NOTE | 2019-11-21 17:17 | NUR ---
NO ACUTE CHANGES THROUGHOUT SHIFT, PT HAD C/O PAIN IN RT FOOT THIS AFTERNOON TREATED W/ PRN NORCO W/ NO RELIEF. WE TRIED TO REPOSITION FOOT/LEG, DISTRACTION, A QUIET, DARK ENVIRONMENT, COMFORT FOOD W/ NO RELIEF. DR NOTIFIED AND ORDERS RECEIVED TO USE A HEATING PAD AND GIVE AN EXTRA DOSE OF GABAPENTIN. GABAPENTIN GIVEN AND CURRENTLY AWAITING ARRIVAL OF PUMP FOR HEATING PAD FROM [facility]. DAUGHTER CURRENTLY IN ROOM AND UPDATED ON POC. TOES TO RT FOOT ARE STILL WARM AND CAP REFILL RIGHT AT 3 SECONDS. MEDS PER JUL, HOURLY ROUNDING OBSERVED, FALL PRECAUTIONS IN PLACE, PT GOT UP TO COMODE TODAY, CALL LIGHT W/IN REACH, WILL CONTINUE POC.
[2019-11-21 20:00] VITALS: BP 134/46
[2019-11-22] VITALS: BP 143/51
--- NOTE | 2019-11-22 04:35 | NUR ---
Pt complains of R foot pain, meds given per mar, pt state mild relief. Intermittent heating pad placed. Pt accu check. Pt used call light appropriately. Hourly rounding observed, will continue to monitor.
[2019-11-22 08:16] VITALS: BP 169/64
--- NOTE | 2019-11-22 10:15 | NUR ---
ASSUMED PT CARE AT 0730, PT RESTING IN BED, AOX3-4 AND FORGETFUL AND C/O PAIN TO RT FOOT 12/20 TREATED W/ PRN NORCO W/ SOME RELIEF. PT TURNED Q2H. WE ALSO TRIED DANGLING FOOT FOR PAIN RELIEF AND THEN PROPPING IT UP ON PILLOW, WHERE IT IS NOW, WHICH HELPED. PT GOAL IS TO INCREASE ACTIVITY W/ PT/OT AND REMAIN FREE FROM SKIN BREAKDOWN. AM ASSESSMENT CHARTED, MEDS PER MAR, HOURLY ROUNDING OBSERVED, FALL PRECAUTIONS IN PLACE, CALL LIGHT W/IN REACH, WILL CONTINUE POC.
--- NOTE | 2019-11-22 14:53 | NUR ---
PT TRANSFERRED TO [facility] TO CONTINUE CARE FOR THE REST OF HER STAY HERE. PT NOTIFIED AND VERY AGREEABLE TO MOVING UNTIL PLACEMENT IS FOUND FOR HER. PT TRANSFERRED W/ ALL BELONGINGS TO ROOM 113 IN [facility].
--- NOTE | 2019-11-22 18:33 | NUR ---
PATIENT ARRIVED TO UNIT AT 1814. ALERT AND ORIENTED X 4. VITAL SIGNS STABLE ON ROOM AIR. ORIENTED PATIENT TO ROOM. CALL LIGHT WITHIN REACH. NURSING WILL CONTINUE TO MONITOR.
--- NOTE | 2019-11-22 18:54 | NUR ---
PT TRANSFERRED TO [facility] FOR THE REMAINDER OF HER STAY HERE. PT TRANSFERRED W/ ALL BELONGINGS, HOME MEDS, INSULIN AND OUR HEATING PAD TO ROOM 117, REPORT GIVEN TO CHRISTINA WONG.
[2019-11-22 20:40] VITALS: BP 141/54
[2019-11-23] VITALS (8 sets, daily range): BP systolic 141; BP diastolic 41
--- NOTE | 2019-11-23 05:22 | NUR ---
PT SLEPT ON AND OFF OVERNIGHT, RECEIVED PO PAIN MED AT HS AND PRN FOR CO R FOOT PAIN. WARM K PAD PLACED ON R FOOT PER PT REQUEST AT HS FOR SHORT TIME, ELEVATED ON PILLOW. R CHEST TICC LINE DOUBLE LUMEN SL. RFA SL IV. PT HAD ONE EPISODE OF NAUSEA WITH EMESIS OVERNIGHT, ZOFRAN GIVEN WITH GOOD RESULT. USING BEDPAN FOR BM OVERNIGHT. HS ACCUCHECK 111, NO INSULIN GIVEN. NO LABS THIS MORNING. DRSG CDI TO R FOOT. SPOKE TO DTR AT HS, CONFIRMED CM FOLLOWING FOR DC PLAN. AO X4, FORGETFUL. ABLE TO USE CALL LITE AND MAKE NEEDS KNOWN.PT ASSISTED WITH TURN AND REPOSITIONING Q2 HOURS AND PRN SHE WOULD ALLOW AND REQUEST.
[2019-11-23] MEDS ORDERED: UNASYN 1.5 GM1.5 GM IV (08:43)
--- NOTE | 2019-11-23 11:40 | NUR ---
SPOKE WITH [facility]. SHE SAID THEY WOULD NOT HAVE ANY BED AVAILABILITY UNTIL . OF THIS WEEK. WILL DISCUSS WITH PT.AND DAUGHTER TO SEE WHICH OTHER FACILITIES THEY WOULD LIKE REFERRAL MADE TO.
--- NOTE | 2019-11-23 16:00 | NUR ---
REFERRAL MADE TO [facility] AFTER SPEAKING WITH PT.AND DAUGHTER CHASE. THEIR SECOND CHOICE WOULD BE [facility], [place]. [facility] CALLED AND SAID THEY CAN ACCEPT PT. TODAY. [facility] KENNEDY WILL NET WASH[facility] AT [id number]. PT.INFORMED. CALLED DAUGHTER,CHASE TO INFORM. INFORMED HER NO SNFS ALLOW VISITORS AT THIS TIME. SHE SAID IF EVERY SNF IS LIKE THAT THERE IS NOTHING THEY CAN DO ABOUT IT. PT.ALSO INFORMED AND SHE UNDERSTOOD. FAXED DISCHARGE ORDERS TO [facility]. CHART COPIED TO GO WITH PT. NURSING TO CALL REPORT.
--- NOTE | 2019-11-23 17:40 | NUR ---
Pt discharged in stable condition with transporter in wc van to SNF. Pt AOx4, no c/o pain at time of discharge. Discharge instructions and chart information provided in packet sent with patient. No questions or concerns voiced. IV removed. Sal gathered and sent with patient.
== END 2019-11-23 17:35 | DRG 616 ==
LOC: M.TBA 10:22 → M.ORTHSURG 15:24 → M.2W 11-13 10:40 → M.ORTHSURG 11-13 10:40 → M.2W 11-13 11:41 → M.ORTHSURG 11-22 18:21
PROVIDERS: Internal Medicine; Internal Medicine Nephrology; Podiatrist Foot & Ankle Surgery; Psychiatry & Neurology Neurology; Psychiatry & Neurology Neuromuscular Medicine; Specialist; ADMIT Internal Medicine; ATTEND Internal Medicine
PROC: 0Y6V0Z0 Detachment at Right 4th Toe, Complete, Open Approach (ICD-10-PCS; principal; 2019-11-13)
PROC: B548ZZA Ultrasonography of Superior Vena Cava, Guidance (ICD-10-PCS; 2019-11-20)
PROC: 02HV33Z Insertion of Infusion Device into Superior Vena Cava, Percutaneous Approach (ICD-10-PCS; 2019-11-20)
PROC: 0JH63XZ Insertion of Tunneled Vascular Access Device into Chest Subcutaneous Tissue and Fascia, Percutaneous Approach (ICD-10-PCS; 2019-11-20)
DX: E11.69 Type 2 diabetes mellitus with other specified complication (principal); G93.41 Metabolic encephalopathy; I12.0 Hypertensive chronic kidney disease with stage 5 chronic kidney disease or end stage renal disease; M86.8X7 Other osteomyelitis, ankle and foot; E11.52 Type 2 diabetes mellitus with diabetic peripheral angiopathy with gangrene; I96 Gangrene, not elsewhere classified; J98.11 Atelectasis; E11.621 Type 2 diabetes mellitus with foot ulcer; E11.22 Type 2 diabetes mellitus with diabetic chronic kidney disease; E11.649 Type 2 diabetes mellitus with hypoglycemia without coma; E11.40 Type 2 diabetes mellitus with diabetic neuropathy, unspecified; I65.22 Occlusion and stenosis of left carotid artery; D64.9 Anemia, unspecified; N18.5 Chronic kidney disease, stage 5; E66.9 Obesity, unspecified; N17.9 Acute kidney failure, unspecified; E87.5 Hyperkalemia; E78.5 Hyperlipidemia, unspecified; Z79.4 Long term (current) use of insulin; Z68.31 Body mass index [BMI] 31.0-31.9, adult; Z03.818 Encounter for observation for suspected exposure to other biological agents ruled out